=== PATIENT | female | born 1985 | race Caucasian/White ===

== ENCOUNTER 2017-12-13 18:16 | Emergency (ER) | payer OTHER, SELFPAY ==
[2017-12-13 18:17] VITALS: BP 136/83; PULSE 99; RESP 16; TEMP 36.7; O2SAT 100; BMI 33.6
--- NOTE | 2017-12-13 18:32 | CT_ITS ---
STUDY: CT BRAIN WITHOUT CONTRAST REASON FOR EXAM: Female, 32 years old. Injury. Head pressure. History of craniosynostosis. RADIATION DOSAGE (If Supplied By Facility): CTDIvol = ( 44.99 ) mGy, DLP = ( 745.49 ) mGycm TECHNIQUE: Transaxial CT imaging of the brain was performed without administration of intravenous contrast material. Individualized dose optimization techniques were used for this CT. COMPARISON: None. FINDINGS: Normal soft tissue structures. Elongated calvarium consistent with a history of craniosynostosis. Normal size ventricles and extra-axial spaces for the patient's age. Normal white matter tracts of the cerebral hemispheres. Normal basal ganglia and thalami. Normal brainstem. Normal cerebellum. There is no intracranial hemorrhage. There are no findings of an acute ischemic infarction. Normal visualized paranasal sinuses. CT/Brain/Head without Contrast IMPRESSION: Normal unenhanced CT scan of the brain. Electronically Signed: Keegan Santos MD at 19:30 EDT , Service support ,
--- NOTE | 2017-12-13 20:02 | ED.DCSUM_ITS ---
- ER Visit Summary Date of Service: 12/13/17 Chief Complaint: Head injury History of Present Illness: The patient is a [address] Leonardo. She reports that as she sat on her couch she hit her head on the wall. Did not have a loss of consciousness. She complains of a sharp headache is 10 out of 10 severity. States that she is concerned because she has a history of craniosynostosis. Physical Examination: Vitals: Stable. Afebrile. Head: Social patient in the occipital area of her scalp. No appreciable hematoma. Neck: No vertebral tenderness. Full ROM without difficulty. Cleared by NEXUS criteria. Back: No vertebral tenderness. General: A&O x 3. NAD. Cardiovascular exam: Regular rate and rhythm, no murmur, rub or gallop. Respiratory exam: Chest nontender. No crepitus. Clear to auscultation bilaterally. No wheezes or stridor. Abdominal exam: Soft, nontender, nondistended, normal bowel sounds. No pain in RUQ or LUQ specifically. No peritoneal signs. Extremity: Atraumatic. No pain with range of motion. Test Results: CT brain is normal. Emergency Department Course and Treatment: Patient refused pain or nausea medications. She is resting comfortably. Treatment Plan: Patient will be discharged instructions to follow-up with primary care physician as needed. Disposition: To home in improved and stable condition. Impression: 1. Closed head injury. This note was generated with [employer] dictation software. It may contain incorrect words, spelling, and punctuation that were not noted in review of the chart prior to signing ED Disposition - Plan for ED Patient: Disposition: Home or Assisted Living Chief Complaint: Head Injury Instructions: ED Head Injury Closed Referrals: Carlos Leonardo MD [Primary Care Provider] - 1-2 Days if not improving
[2017-12-13 20:18] VITALS: BP 141/90; PULSE 82; RESP 18; O2SAT 99
== END 2017-12-13 20:19 | disposition home or self-care (01) ==
LOC: ED 19:34
PROVIDERS: Emergency Provider Emergency Medicine; Family Provider Family Medicine; PCP Family Medicine
DX: S09.90XA Unspecified injury of head, initial encounter (principal); R11.0 Nausea; W22.01XA Walked into wall, initial encounter; Y93.9 Activity, unspecified; Y92.9 Unspecified place or not applicable; Q75.0 Craniosynostosis
CPT/HCPCS: 70450; 99282

== ENCOUNTER → 2021-01-27 | Outpatient (CLI) | payer OTHER, SELFPAY ==
[2018-10-20 08:49] VITALS: BMI 33.8
[2021-01-29 20:25] LABS: HPV APTIMA, High Risk Negative (Negative)
== END | disposition home or self-care (01) ==
LOC: LABSPEC 09:27
PROVIDERS: PCP Family Medicine; Visit Provider Student in an Organized Health Care Education/Training Program
DX: Z12.4 Encounter for screening for malignant neoplasm of cervix (principal)
CPT/HCPCS: 87624; 88175; G0145

== ENCOUNTER 2024-08-14 12:00 | Outpatient (RCR) | payer OTHER, SELFPAY ==
--- NOTE | 2024-07-31 08:11 | HP.PTEVAL ---
Patient's Visit Information Visit Information Visit Information: TATUM FLOYD is a 39 year old F referred to Physical Therapy by ROBIN GONZALEZ with a diagnosis of R L4/L5 radiculopathy. Date of Evaluation: 07/28/24 Physical Therapist: Miguel Lovelace DPT Visit Plan Frequency: 3x /Week Duration: 6 Weeks Plan: 1) prone extension, but very slowly. 2) modalities to reduce symptoms, IFC and ice 3) Neutral spine activation as tolerated. Pt. did have high levels of pain with palpation of spine and her episode of bladder issues has me concerned (happened once). Will monitor, if consistent I will send back to physician. Subjective Subjective: Pt. is here today for her initial evaluation with diagnosis of R L4/L5 radiculopathy due to disc disease. Pt. reports having increased pain for a number of years, but over the past few months her pain has become a lot worse. Pt. reports pain in middle of her back to extends lateral, mostly on her R side, but nothing further than her knee. Pt. reports no new LE weakness. Pt. reports no B/B issues consistently, but did remember having an issue with her bladder after sustained sitting in hunting blind for 6 hours. Pt. reports no occurances since. Pt. is having trouble with initially getting up. Pt. reports stiffness in the AMs. Pt. reports stretching does help but only temp. No changes with heat or ice. Pt. is hopeful to reduce symptoms in order to get back to all recreational activities without limitations. Pain Lumbar spine: Pain Intensity (Out of 10): 4 Pain Intensity Range: 2 and 8 Objective Objective: POSTURE: Pt. has slight flexed posture, but minimal. Pt. is able to correct. No major shift noted. PALPATION: Pt. has no pain with palpation of LEs. Pt. did report high levels of pain with PAs to L3-S1. Pt. did not have as much pain with palpation of B lumbar erector spinae. NEURO: normal DTR of BLes. Pt. did have some N/T at medial calf and melchor on R side. LLE normal. Pt. is able to rise on heels and toes without issues. ROM: LUMBAR SPINE: flexion nil loss mild increase NW with returning. ext mod loss increase NW, SB nil loss bilat NE, rotation min/nil loss increase NW. Pt. has normal HS length, slight tightness in B hip flexors. MMT: Pt. has 5/5 distal LE strength, 4+/5 B hip strength increase NW with hip flexion. Core strength poor. GAIT: pt. has decreased B arm swing, guarded posture. Pt. did report feeling a little bit uneasy with walking after extension testing. Reduced with tiara pose. Special Tests L/S Slump test left side: Negative L/S Slump test right side: Negative L/S Left Straight Leg Raise: Negative L/S Right Straight Leg Raise: Negative Lumbar Standing: Flexion - Mechanical Response: No effect Lumbar Standing: Flexion - Symptoms During Testing: No effect Lumbar Standing: Extension - Mechanical Response: No effect Lumbar Standing: Extension - Symptoms During Testing: Increases Lumbar Standing: Extension - Symptoms After Testing: No worse Lumbar Standing: Right Side Glides - Mechanical Response: No effect Lumbar Standing: Right Side Lagrange - Symptoms During Testing: No effect Lumbar Standing: Right Side Lagrange - Symptoms After Testing: No effect Lumbar Standing: Left Side Lagrange - Mechanical Response: No effect Lumbar Standing: Left Side Lagrange - Symptoms During Testing: No effect Lumbar Standing: Left Side Lagrange - Symptoms After Testing: No effect Lumbar Lying: Flexion - Mechanical Response: No effect Lumbar Lying: Flexion - Symptoms During Testing: Decreases Lumbar Lying: Flexion - Symptoms After Testing: No better Lumbar Lying: Extension - Mechanical Response: No effect Lumbar Lying: Extension - Symptoms During Testing: Increases Lumbar Lying: Extension - Symptoms After Testing: No worse Lumbar Static: Slouched Sit - Mechanical Response: No effect Lumbar Static: Slouched Sit - Symptoms During Testing: Decreases Lumbar Static: Slouched Sit - Symptoms After Testing: No better Lumbar Static: Sitting Erect - Mechanical Response: No effect Lumbar Static: Sitting Erect - Symptoms During Testing: No effect Lumbar Static: Sitting Erect - Symptoms After Testing: No effect Lumbar Static:Lying Prone in Extension - Mechanical Response: No effect Lumbar Static: Lying Prone in Extension - Sx During Testing: Decreases Lumbar Static: Lying Prone in Extension - Sx After Testing: No better Balance/Special Test Scores Oswestry Low Back Score: 24 Goals Goal 1:: LTG: Pt. to be I with HEP. Goal Time Frame: 4-6 Weeks Goal 2:: STG: pt. to sleep throughout the night without increase in symptoms. Goal Time Frame: 2-4 Weeks Goal 3:: LTG: Pt. to reports 0-2/10 pain in back and leg allowing for increased quality of life. Goal Time Frame: 4-6 Weeks Goal 4:: LTG: Pt. to have full lumbar ROM without increase in symptoms. Goal 5:: LTG: Pt. to reports no R LE symptoms with all activities. Goal Time Frame: 4-6 Weeks Rehabilitation Potential Physical Therapy Diagnosis: Pt. has signs and symptoms consistent with R L4/L5 radiculopathy. Pt. would benefit from PT to address her increased pain, hypomobility and core weakness in PT in order to get back to all ADLs and household work without limitations. Rehabilitation Potential: Good Anticipated Interventions Patient/Client Instruction: Educate patient on: Condition, Plan of Care, Risk Factors and Benefits of Fitness Program For the Purpose of:: To improve decision making, To facilitate caregiver knowledge, To improve self management, To prevent re-injury and To improve ability to perform tasks related to life management Therapeutic Exercise to Include: Strength training, Power training, Postural training, Flexibilty training, Passive ROM, Active ROM, Dynamic Lumbar Stabilization and Nicholas Exercises For the Purpose of:: To decrease pain, To increase ROM, To improve nutrient delivery to tissue, To increase oxygenation perfusion, To improve muscle performance and motor function, To improve ability to perform ADL's, To increase tolerance to activity/condition/position, To improve health of tissue, To decrease soft tissue restriction and To increase flexibility/ROM Manual Therapy Techniques to Include: Mobilization, Passive ROM and Soft tissue mobilization For the Purpose of:: To decrease pain, To increase ROM, To improve nutrient delivery to tissue, To increase oxygenation perfusion, To improve muscle performance and motor function, To improve ability to perform ADL's and To increase tolerance to activity/condition/position Text: Thank you for the opportunity to evaluate your patient. For Medicare and Medicare HMO plans, please review the plan of care and approve it. It will need to be FAXED BACK to us at [phone] for Medicare purposes. For Medicare only, by signing this I certify the plan of care. Please let me know if there are questions or concerns regarding this plan of care. Physician Signature: Date:
== END 2024-08-14 19:00 | disposition home or self-care (01) ==
LOC: PT 12:00
PROVIDERS: PCP Family Medicine
DX: M51.369 Other intervertebral disc degeneration, lumbar region without mention of lumbar back pain or lower extremity pain (principal)
CPT/HCPCS: 97161